=== PATIENT | male | born 1990 | race Two or more races ===

== ENCOUNTER 2016-07-25 16:29 | Emergency (ER) | payer SELFPAY ==
[~2016-07-25 16:29] MED LIST: BACITRACIN TOP; CYCLOBENZAPRINE10 M1 PO; DOXYCYCLINE HY100 MG PO; NO MEDS; NORCO 5-325 TA1 EACH PO
[2016-07-25] MEDS ORDERED: AUGMENTIN 875-1 EAC2 PO (20:14)
[2016-07-25] MEDS ORDERED: TRAMADOL HCL50 M2 PO (20:14)
== END 2016-07-25 20:34 ==
LOC: EDMED 16:29
DX: K08.89 Other specified disorders of teeth and supporting structures (principal)